=== PATIENT | male | born 1950 | race Two or more races ===

== ENCOUNTER 2017-10-10 10:02 | Outpatient (CLI) | payer MEDICARE | END 2017-10-10 23:59 | disposition home or self-care (01) | LOC: MSC 10:02 | PROVIDERS: ATTEND Anesthesiology | DX: M25.512 Pain in left shoulder (principal); M75.92 Shoulder lesion, unspecified, left shoulder; M54.5 Low back pain; M96.1 Postlaminectomy syndrome, not elsewhere classified; M19.012 Primary osteoarthritis, left shoulder; M54.30 Sciatica, unspecified side; M47.27 Other spondylosis with radiculopathy, lumbosacral region; M53.3 Sacrococcygeal disorders, not elsewhere classified; M48.061 Spinal stenosis, lumbar region without neurogenic claudication; M25.9 Joint disorder, unspecified; M70.61 Trochanteric bursitis, right hip; M70.62 Trochanteric bursitis, left hip; M76.31 Iliotibial band syndrome, right leg; M76.32 Iliotibial band syndrome, left leg ==

== ENCOUNTER → 2017-11-07 | Outpatient (CLI) | payer MEDICARE, MEDICAID | END | disposition home health service (06) | LOC: MSC 08:45 | PROVIDERS: ATTEND Anesthesiology | DX: M51.36 Other intervertebral disc degeneration, lumbar region (principal); M53.3 Sacrococcygeal disorders, not elsewhere classified; M47.27 Other spondylosis with radiculopathy, lumbosacral region; M96.1 Postlaminectomy syndrome, not elsewhere classified; M48.061 Spinal stenosis, lumbar region without neurogenic claudication; M25.9 Joint disorder, unspecified; M19.012 Primary osteoarthritis, left shoulder; M75.92 Shoulder lesion, unspecified, left shoulder; M70.61 Trochanteric bursitis, right hip; M70.62 Trochanteric bursitis, left hip; M76.31 Iliotibial band syndrome, right leg; M76.32 Iliotibial band syndrome, left leg; Z98.890 Other specified postprocedural states ==

== ENCOUNTER 2018-01-23 09:00 | Outpatient (CLI) | payer MEDICARE, MEDICAID | END 2018-01-23 23:59 | disposition home or self-care (01) | LOC: MSC 09:00 | PROVIDERS: ATTEND Anesthesiology | DX: M47.27 Other spondylosis with radiculopathy, lumbosacral region (principal); M51.36 Other intervertebral disc degeneration, lumbar region; M48.061 Spinal stenosis, lumbar region without neurogenic claudication; M96.1 Postlaminectomy syndrome, not elsewhere classified; M53.3 Sacrococcygeal disorders, not elsewhere classified; M25.9 Joint disorder, unspecified; M79.2 Neuralgia and neuritis, unspecified; M19.012 Primary osteoarthritis, left shoulder; M75.92 Shoulder lesion, unspecified, left shoulder; M25.512 Pain in left shoulder ==

== ENCOUNTER 2018-01-30 09:30 | Outpatient (CLI) | payer MEDICARE, MEDICAID | END 2018-01-30 23:59 | disposition home or self-care (01) | LOC: MSC 09:30 | PROVIDERS: ATTEND Anesthesiology | DX: M47.27 Other spondylosis with radiculopathy, lumbosacral region (principal); M96.1 Postlaminectomy syndrome, not elsewhere classified; M51.36 Other intervertebral disc degeneration, lumbar region; M48.061 Spinal stenosis, lumbar region without neurogenic claudication; M25.9 Joint disorder, unspecified; M19.012 Primary osteoarthritis, left shoulder; M75.92 Shoulder lesion, unspecified, left shoulder; M79.2 Neuralgia and neuritis, unspecified; M53.3 Sacrococcygeal disorders, not elsewhere classified; M70.61 Trochanteric bursitis, right hip; M70.62 Trochanteric bursitis, left hip; M76.31 Iliotibial band syndrome, right leg; M76.32 Iliotibial band syndrome, left leg ==

== ENCOUNTER 2023-06-25 18:57 | Emergency (ER) | payer MEDICARE, OTHER ==
[~2023-06-25] VITALS: Ht 152.4 cm; Wt 59.0 kg
[2023-06-25] MEDS ORDERED: ACETAMINOPHEN ES 500 MG TABLET PO ONE (20:30)
[2023-06-25] MEDS ORDERED: ACETAMINOPHEN ES 500 MG TABLET ONE (20:30)
[2023-06-25] MEDS ORDERED: LIDOCAINE 1% INJ 50 ML MDV IJ ONE (20:30)
[2023-06-25] MEDS ORDERED: TDAP [DIPH/PERTUSSIS/TET] 0.5 ML VIAL IM ONE ×2 (20:30)
[2023-06-25] MEDS ORDERED: LIDOCAINE HCL/PF 1% 30 ML VIAL IJ ONE (20:30)
[2023-06-25 21:52] VITALS: BP 145/82; TEMP 98.2; O2SAT 99
== END 2023-06-25 21:52 | disposition home or self-care (01) ==
LOC: ER 19:05
DX: S61.210A Laceration without foreign body of right index finger without damage to nail, initial encounter (principal); W26.0XXA Contact with knife, initial encounter; Y93.89 Activity, other specified; Y92.89 Other specified places as the place of occurrence of the external cause; Y99.8 Other external cause status
CPT/HCPCS: 12001; 90471; 90715; 99283; J3490

== ENCOUNTER 2023-07-08 12:54 | Emergency (ER) | payer MEDICARE, OTHER ==
[~2023-07-08] VITALS: Ht 152.4 cm; Wt 59.0 kg
[2023-07-08 13:00] VITALS: O2SAT 98
[2023-07-08 13:11] VITALS: BP 137/69; TEMP 98.2; O2SAT 98
== END 2023-07-08 13:56 | disposition home or self-care (01) ==
LOC: ER 12:59
DX: Z48.02 Encounter for removal of sutures (principal)